=== PATIENT | female | born 1950 | race Caucasian/White ===

== ENCOUNTER 2019-09-23 09:52 | Emergency (ER) | payer MEDICARE, OTHER ==
[~2019-09-23] VITALS: Ht 170.1 cm; Wt 60.0 kg
[2019-09-23] MEDS ORDERED: hydrALAZINE (APESOLINE) 20 MG/ML VIAL IV ONE (10:30)
[2019-09-23] MEDS ORDERED: ACETAMINOPHEN 500 MG TAB (TYLENOL) PO ONE (10:30)
--- NOTE | 2019-09-23 10:35 | ED Headache ---
General Chief Complaint: Cardiac/General Problems Stated Complaint: BP 180/106; HEADACHE Nursing Triage Note: PT REPORTS HIGH BLOOD PRESSURE AFTER HER SCIATIC [place] STARTED IN HER LOWER BACK. SHE WAS STARTED ON PREDNISONE AND TIZANIDINE ON MONDAY FROM URGENT CARE. Nursing Sepsis Screen: No Definite Risk Source: patient History of Present Illness Date Seen by Provider: Sep 23, 2019 Time Seen by Provider: 10:05 Initial Comments The patient is a very pleasant 69-year-old female who presents for evaluation of high blood pressure and headache. She states that she was started on tizanidine and prednisone on Monday at urgent care related to lower back pain which was diagnosed as sciatica. Normally her blood pressure is very well controlled but she reports that she noticed her blood pressure yesterday was approximately 16 0/100 and also noted a mild gradual onset headache. Today the headache has continued and her blood pressure is even more elevated. She is alert and oriented 4, calm, and appears to be in no distress. She states the headache currently is mild. She is mostly concerned about her elevated blood pressure. She denies neck pain or neck stiffness, vision changes, focal weakness or numbness, chest pain or shortness of breath, abdominal or back pain, palpitations, nausea or vomiting, dizziness or syncope. Timing/Duration: 24 hours Severity/Quality: mild Location: frontal Prior Headaches/Recent Trauma: occasional headaches Associated Symptoms: denies symptoms Allergies and Home Medications Allergies Coded Allergies: Sulfa (Sulfonamide Antibiotics) (Verified Allergy, Unknown, 09/23/19) Patient Home Medication List Home Medication List Reviewed: Yes Review of Systems Review of Systems Constitutional: no symptoms reported Eyes: No Symptoms Reported Ears, Nose, Mouth, Throat: no symptoms reported Respiratory: no symptoms reported Cardiovascular: no symptoms reported Gastrointestinal: no symptoms reported Genitourinary: no symptoms reported Musculoskeletal: back pain Skin: no symptoms reported Psychiatric/Neurological: Headache All Other Systems Reviewed Negative Unless Noted: Yes Past Tqmzmqt-Hunytg-Owcogl Hx Past Med/Social Hx: Reviewed Nursing Past Med/Soc Hx Patient Social History Alcohol Use: Denies Use Recreational Drug Use: No Smoking Status: Never a Smoker 2nd Hand Smoke Exposure: No Recent Foreign Travel: No Contact w/Someone Who Travel: No Recent Infectious Disease Expo: No Recent Hopitalizations: No Physical Abuse: No Sexual Abuse: No Mistreated: No Fear: No Seasonal Allergies Seasonal Allergies: Yes Past Medical History Surgeries: Yes Bladder Surgery, Hysterectomy Respiratory: No Cardiac: Yes High Cholesterol, Hypertension Neurological: No Genitourinary: No Gastrointestinal: No Musculoskeletal: Yes Chronic Back Pain Endocrine: No HEENT: No Cancer: No Psychosocial: Yes Anxiety, Depression Blood Disorders: No Physical Exam Vital Signs Vital Signs - First Documented 09/23/19 10:11 Temp 37.7 Pulse 75 Resp 18 B/P (MAP) 185/87 (119) O2 Delivery Room Air Capillary Refill : Less Than 3 Seconds Height, Weight, BMI Height: '" Weight: lbs. oz. kg; 20.00 BMI Method: General Appearance: WD/WN, no apparent distress HEENT: PERRL/EOMI, normal ENT inspection, pharynx normal Neck: non-tender, full range of motion, supple Cardiovascular: regular rate, rhythm, no edema, no JVD Respiratory: chest non-tender, lungs clear, normal breath sounds, no respiratory distress Gastrointestinal: normal bowel sounds, non tender, soft Back: normal inspection, no CVA tenderness Extremities: normal range of motion, non-tender, no pedal edema Psychiatric: alert, oriented x 3 Cra[place] Nerves: normal hearing, normal speech, PERRL Coordination/Gait: normal gait Motor/Sensory: no motor deficit, no sensory deficit Skin: normal color, warm/dry Progress/Results/Core Measures Results/Orders Lab Results Laboratory Tests Test 09/23/19 10:24 Range/Units White Blood Count 6.9 4.3-11.0 10^3/uL Red Blood Count 5.44 4.35-5.85 10^6/uL Hemoglobin 18.2 H 11.5-16.0 G/DL Hematocrit 54 H 35-52 % Mean Corpuscular Volume 99 80-99 FL Mean Corpuscular Hemoglobin 33 25-34 PG Mean Corpuscular Hemoglobin Concent 34 32-36 G/DL Red Cell Distribution Width 12.6 10.0-14.5 % Platelet Count 154 130-400 10^3/uL Mean Platelet Volume 10.5 H 7.4-10.4 FL Neutrophils (%) (Auto) 77 H 42-75 % Lymphocytes (%) (Auto) 16 12-44 % Monocytes (%) (Auto) 7 0-12 % Eosinophils (%) (Auto) 0 0-10 % Basophils (%) (Auto) 0 0-10 % Neutrophils # (Auto) 5.3 1.8-7.8 X 10^3 Lymphocytes # (Auto) 1.1 1.0-4.0 X 10^3 Monocytes # (Auto) 0.5 0.0-1.0 X 10^3 Eosinophils # (Auto) 0.0 0.0-0.3 10^3/uL Basophils # (Auto) 0.0 0.0-0.1 10^3/uL Sodium Level 141 135-145 MMOL/L Potassium Level 4.0 3.6-5.0 MMOL/L Chloride Level 103 98-107 MMOL/L Carbon Dioxide Level 26 21-32 MMOL/L Anion Gap 12 5-14 MMOL/L Blood Urea Nitrogen 13 7-18 MG/DL Creatinine 0.73 0.60-1.30 MG/DL Estimat Glomerular Filtration Rate > 60 BUN/Creatinine Ratio 18 Glucose Level 109 H 70-105 MG/DL Calcium Level 11.0 H 8.5-10.1 MG/DL Corrected Calcium 10.7 H 8.5-10.1 MG/DL Total Bilirubin 0.4 0.1-1.0 MG/DL Aspartate Amino Transf (AST/SGOT) 12 5-34 U/L Alanine Aminotransferase (ALT/SGPT) 8 0-55 U/L Alkaline Phosphatase 47 40-136 U/L Troponin I < 0.30 <0.30 NG/ML Pro-B-Type Natriuretic Peptide 1230.0 H <75.0 PG/ML Total Protein 7.1 6.4-8.2 GM/DL Albumin 4.4 3.2-4.5 GM/DL My Orders Orders - JANICE STEVENS DO Ct Head Wo (09/23/19 09:58) Ed Iv/Invasive Line Start (09/23/19 10:24) Ekg Tracing (09/23/19 10:24) Hydralazine Injection (Apresoline Inject (09/23/19 10:30) Acetaminophen Tablet (Tylenol Tablet) (09/23/19 10:30) Cbc With Automated Diff (09/23/19 10:43) Comprehensive Metabolic Panel (09/23/19 10:43) Troponin I Fs (09/23/19 10:43) Probnp Fs (09/23/19 10:44) Medications Given in ED Current Medications Medications Dose Ordered Sig/Leigha Route Start Time Stop Time Status Last Admin Dose Admin Acetaminophen 1,000 mg ONCE ONCE PO 09/23/19 10:30 09/23/19 10:31 DC 09/23/19 10:29 1,000 MG Hydralazine HCl 15 mg ONCE ONCE IV 09/23/19 10:30 09/23/19 10:31 DC 09/23/19 10:29 15 MG Vital Signs/I&O 09/23/19 10:11 Temp 37.7 Pulse 75 Resp 18 B/P (MAP) 185/87 (119) O2 Delivery Room Air Blood Pressure Mean: 119 Progress Progress Note : Progress Note @1130 - patient updated on lab and imaging results which were unremarkable. Her EKG was abnormal but was similar to previous EKG. She has no complaints and states that her headache is feeling better. Her blood pressure has improved. Advised that she does not take the prednisone as this could be contributing to her hypertension. She states that her back is feeling better terms of the sciatica. Advise close follow-up with her PCP with the next 1-2 days and return to the emergency Department immediately for new or worsening symptoms. The patient stresses verbal understanding and agreement and is stable for discharge. EKG : Comment EKG@1030 - Normal sinus rhythm, rate of 71, normal axis, mild ST depression in leads 2, V5, and V6, no STEMI, reviewed and interpreted by myself This was compared to a previous ecg performed 03/18/19 which also shows the mild ST depression in leads 2, V5, and V6, there is no significant change from this earlier EKG. Diagnostic Imaging Comments [facility] [place], [place] NAME: DAVID MCGUIRE [facility] REC#: [id number] PT STATUS: REG ER : 1950 PHYSICIAN: JANICE STEVENS DO ADMIT DATE: 09/23/19/ER FS Draft Date of Exam:09/23/19 CT HEAD WO PROCEDURE: CT head without contrast. TECHNIQUE: Multiple contiguous axial images were obtained through the brain without the use of intravenous contrast. Auto Exposure Controls were utilized during the CT exam to meet ALARA standards for radiation dose reduction. INDICATION: Headache and high blood pressure since yesterday. No prior studies are available for comparison. Ventricles and sulci are within normal limits. There is moderate patchy periventricular hypodensity noted, likely on the basis of chronic microvascular ischemia. No sulcal effacement or midline shift is seen. No acute intra-axial or extra-axial hemorrhage is detected. Cisterns are patent. Visualized paranasal sinuses are clear. IMPRESSION: Chronic changes. No acute intracranial process is detected. Dictated on workstation # [id number] Dict: 09/23/19 1105 Trans: 09/23/19 1116 [facility] [id number] Interpreted by: VIVIANA SUAZO MD Electronically signed by: Departure Impression Primary Impression: Hypertensive urgency Additional Impression: Headache Disposition: HOME, SELF-CARE Condition: Stable Departure-Patient Inst. Decision time for Depature: 11:35 Referrals: FAINA EID MD (PCP/Family) Primary Care Physician Patient Instructions: High Blood Pressure (DC), Headache, Adult (DC) Add. Discharge Instructions: Follow-up with your doctor the next 1-2 days. Return to the emergency Department immediately for new or worsening symptoms. Do not take your prednisone. JANICE STEVENS DO Sep 23, 2019 10:34
--- NOTE | 2019-09-23 10:52 | NUR ---
CONTACTED DR EID IN [place] IN [place] TO AN OLD EKG FOR COMPARISON. DR. DELAROSA NURSE REPORTS ONE WAS DONE IN FEBRUARY 2019 AND THEY ARE FAXING THE EKG TO DR. STEVENS.
[2019-09-23 10:59] LABS: HEMATOCRIT 54 % (35-52); HEMOGLOBIN 18.2 G/DL (11.5-16.0); MEAN CORPUSCULAR HEMOGLOBIN 33 PG (25-34); MEAN CORPUSCULAR VOLUME 99 FL (80-99); WHITE BLOOD COUNT 6.9 10^3/uL (4.3-11.0)
[2019-09-23 11:00] LABS: BASOPHILS % (AUTO) 0 % (0-10); EOSINOPHILS % (AUTO) 0 % (0-10); LYMPHOCYTES # (AUTO) 1.1 X 10^3 (1.0-4.0); LYMPHOCYTES % (AUTO) 16 % (12-44); MEAN CORPUSCULAR HGB CONC 34 G/DL (32-36); MEAN PLATELET VOLUME 10.5 FL (7.4-10.4); MONOCYTES # (AUTO) 0.5 X 10^3 (0.0-1.0); MONOCYTES % (AUTO) 7 % (0-12); NEUTROPHILS # (AUTO) 5.3 X 10^3 (1.8-7.8); NEUTROPHILS % (AUTO) 77 % (42-75); PLATELET COUNT 154 10^3/uL (130-400); RED CELL DISTRIBUTION WIDTH 12.6 % (10.0-14.5)
--- NOTE | 2019-09-23 11:17 | Diagnostic Imaging Report ---
PROCEDURE: CT head without contrast. TECHNIQUE: Multiple contiguous axial images were obtained through the brain without the use of intravenous contrast. Auto Exposure Controls were utilized during the CT exam to meet ALARA standards for radiation dose reduction. INDICATION: Headache and high blood pressure since yesterday. No prior studies are available for comparison. Ventricles and sulci are within normal limits. There is moderate patchy periventricular hypodensity noted, likely on the basis of chronic microvascular ischemia. No sulcal effacement or midline shift is seen. No acute intra-axial or extra-axial hemorrhage is detected. Cisterns are patent. Visualized paranasal sinuses are clear. IMPRESSION: Chronic changes. No acute intracranial process is detected. Dictated by: Dictated on workstation # [id number]
[2019-09-23 11:19] LABS: ALANINE AMINOTRANSFERASE 8 U/L (0-55); ALKALINE PHOSPHATASE 47 U/L (40-136); BILIRUBIN,TOTAL 0.4 MG/DL (0.1-1.0); BUN/CREATININE RATIO 18; CARBON DIOXIDE 26 MMOL/L (21-32); CHLORIDE 103 MMOL/L (98-107); CREATININE SERUM 0.73 MG/DL (0.60-1.30); GFR ESTIMATED > 60; GLUCOSE 109 MG/DL (70-105); SODIUM 141 MMOL/L (135-145)
[2019-09-23 11:20] LABS: ALBUMIN 4.4 GM/DL (3.2-4.5); TOTAL PROTEIN 7.1 GM/DL (6.4-8.2)
[2019-09-23 11:51] VITALS: BP 154/82
== END 2019-09-23 11:51 | disposition home or self-care (01) ==
LOC: ER FS 09:55
DX: I16.0 Hypertensive urgency (principal); R51 Headache; I10 Essential (primary) hypertension; E78.00 Pure hypercholesterolemia, unspecified; F41.9 Anxiety disorder, unspecified; F32.9 Major depressive disorder, single episode, unspecified; Z88.2 Allergy status to sulfonamides; Z90.710 Acquired absence of both cervix and uterus
CPT/HCPCS: 36415; 70450; 80053; 83880; 84484; 85025; 93005; 96374

== ENCOUNTER 2019-09-24 15:24 | Emergency (ER) | payer MEDICARE, OTHER ==
[~2019-09-24] VITALS: Ht 170.1 cm; Wt 59.0 kg
[2019-09-24 16:35] LABS: BILIRUBIN,URINE NEGATIVE (NEGATIVE); CLARITY,URINE CLEAR; COLOR,URINE YELLOW; GLUCOSE, URINE (UA) NEGATIVE (NEGATIVE); KETONES,URINE NEGATIVE (NEGATIVE); LEUKOCYTE ESTERASE ,URINE NEGATIVE (NEGATIVE); NITRITE,URINE NEGATIVE (NEGATIVE); PH,URINE 7 (5-9); PROTEIN,URINE NEGATIVE (NEGATIVE)
[2019-09-24 16:37] LABS: BASOPHILS % (AUTO) 0 % (0-10); EOSINOPHILS % (AUTO) 0 % (0-10); HEMATOCRIT 44 % (35-52); LYMPHOCYTES # (AUTO) 1.5 X 10^3 (1.0-4.0); LYMPHOCYTES % (AUTO) 16 % (12-44); MEAN CORPUSCULAR HEMOGLOBIN 34 PG (25-34); MEAN CORPUSCULAR HGB CONC 34 G/DL (32-36); MEAN CORPUSCULAR VOLUME 100 FL (80-99); MEAN PLATELET VOLUME 10.7 FL (7.4-10.4); MONOCYTES # (AUTO) 0.8 X 10^3 (0.0-1.0); MONOCYTES % (AUTO) 9 % (0-12); NEUTROPHILS # (AUTO) 7.1 X 10^3 (1.8-7.8); NEUTROPHILS % (AUTO) 75 % (42-75); PLATELET COUNT 285 10^3/uL (130-400); RED CELL DISTRIBUTION WIDTH 12.9 % (10.0-14.5); WHITE BLOOD COUNT 9.4 10^3/uL (4.3-11.0)
[2019-09-24 16:44] LABS: BACTERIA,URINE NEGATIVE /HPF
[2019-09-24 16:48] LABS: ALANINE AMINOTRANSFERASE 14 U/L (0-55); ALBUMIN 4.5 GM/DL (3.2-4.5); ALKALINE PHOSPHATASE 48 U/L (40-136); AMYLASE 80 U/L (25-125); BILIRUBIN,TOTAL 0.7 MG/DL (0.1-1.0); BUN/CREATININE RATIO 12; CALCIUM 10.2 MG/DL (8.5-10.1); CARBON DIOXIDE 26 MMOL/L (21-32); CHLORIDE 103 MMOL/L (98-107); CREATININE SERUM 0.83 MG/DL (0.60-1.30); GFR ESTIMATED > 60; GLUCOSE 106 MG/DL (70-105); LIPASE 64 U/L (8-78); POTASSIUM 3.6 MMOL/L (3.6-5.0); SODIUM 141 MMOL/L (135-145); TOTAL PROTEIN 7.4 GM/DL (6.4-8.2)
--- NOTE | 2019-09-24 17:21 | Diagnostic Imaging Report ---
INDICATION: Nausea, vomiting and fever. TIME OF EXAM: 5:13 PM COMPARISON: No prior studies are available for comparison. FINDINGS: The heart size is normal. The pulmonary vascularity is unremarkable. The lungs are clear. No infiltrate, effusion or pneumothorax is detected. IMPRESSION: No acute cardiopulmonary process is detected. Dictated by: Dictated on workstation # [id number]
--- NOTE | 2019-09-24 17:52 | ED General ---
General Chief Complaint: General Problems/Pain Stated Complaint: N/V, FEVER Nursing Triage Note: has back pain, HTN, N/V, fever, has been seen multiple times for this Nursing Sepsis Screen: No Definite Risk Source of Information: Patient Exam Limitations: No Limitations History of Present Illness Date Seen by Provider: Sep 24, 2019 Time Seen by Provider: 16:28 Initial Comments 69-year-old female who presents to the emergency room accompanied by son and daughter for complaints of low back pain and intermittent hypertension, nausea and vomiting. She reports that she's been seen by multiple providers for this over the past week. She was started on prednisone and muscle relaxers last Monday for sciatica which caused her blood pressure to go up but didn't help her pain. She presented to [place] emergency room for hypertensive urgency yesterday and received IV medications CT scan of her head and lab work which was unremarkable. Her blood pressure did improve and had an appointment with her PCP today and was found to have a fever of 101 during her vital assessment. She reports that she came to our emergency room to get checked out for her fever. She denies no change in symptoms at this time. She is afebrile at this time. Denies taking Tylenol or ibuprofen for pain. Timing/Duration: 4-5 Days Associated Systoms: Fever/Chills, Nausea/Vomiting Allergies and Home Medications Allergies Coded Allergies: Sulfa (Sulfonamide Antibiotics) (Verified Allergy, Unknown, 09/23/19) Patient Home Medication List Home Medication List Reviewed: Yes Review of Systems Review of Systems Constitutional: see HPI; No chills; fever Musculoskeletal: see HPI, back pain All Other Systems Reviewed Negative Unless Noted: Yes Past Iunfojk-Mivzye-Ssthdu Hx Past Med/Social Hx: Reviewed Nursing Past Med/Soc Hx Patient Social History Alcohol Use: Denies Use Recreational Drug Use: No 2nd Hand Smoke Exposure: No Recent Foreign Travel: No Contact w/Someone Who Travel: No Recent Infectious Disease Expo: No Recent Hopitalizations: No Immunizations Up To Date Tetanus Booster (TDap): Unknown Seasonal Allergies Seasonal Allergies: Yes Past Medical History Surgeries: Yes Bladder Surgery, Hysterectomy Respiratory: No Cardiac: Yes High Cholesterol, Hypertension Neurological: No Genitourinary: No Gastrointestinal: No Musculoskeletal: Yes Chronic Back Pain Endocrine: No HEENT: No Cancer: No Psychosocial: Yes Anxiety, Depression Blood Disorders: No Family Medical History Reviewed Nursing Family Hx Physical Exam Vital Signs Vital Signs - First Documented 09/24/19 09/24/19 15:37 18:00 Temp 36.7 Pulse 80 Resp 18 B/P (MAP) 179/96 (123) Pulse Ox 98 O2 Delivery Room Air Capillary Refill : Less Than 3 Seconds Height, Weight, BMI Height: '" Weight: lbs. oz. kg; 20.00 BMI Method: General Appearance: No Apparent Distress, WD/WN Eyes: Bilateral Eye Normal Inspection, Bilateral Eye PERRL, Bilateral Eye EOMI HEENT: PERRL/EOMI, TMs Normal, Normal ENT Inspection, Pharynx Normal Neck: Full Range of Motion, Normal Inspection, Non Tender, Supple Respiratory: Chest Non Tender, Lungs Clear, Normal Breath Sounds, No Accessory Muscle Use, No Respiratory Distress Cardiovascular: Regular Rate, Rhythm, No Edema, No Gallop, No JVD, No Murmur, Normal Peripheral Pulses Gastrointestinal: Normal Bowel Sounds, No Organomegaly, No Pulsatile Mass, Non Tender, Soft Extremity: Normal Capillary Refill Neurologic/Psychiatric: Alert, Oriented x3, Normal Mood/Affect Skin: Normal Color, Warm/Dry Progress/Results/Core Measures Suspected Sepsis Recent Fever Within 48 Hours: No Infection Criteria Present: None New/Unexplained Altered Menta: No Sepsis Screen: No Definite Risk SIRS Temperature: Pulse: 80 Respiratory Rate: 18 Laboratory Tests 09/24/19 16:14: White Blood Count 9.4 Blood Pressure 179 /96 Mean: 123 Laboratory Tests 09/24/19 16:14: Creatinine 0.83, Platelet Count 285, Total Bilirubin 0.7 Results/Orders Lab Results Laboratory Tests Test 09/24/19 16:10 09/24/19 16:14 Range/Units Urine Color YELLOW Urine Clarity CLEAR Urine pH 7 5-9 Urine Specific [place] 1.010 L 1.016-1.022 Urine Protein NEGATIVE NEGATIVE Urine Glucose (UA) NEGATIVE NEGATIVE Urine Ketones NEGATIVE NEGATIVE Urine Nitrite NEGATIVE NEGATIVE Urine Bilirubin NEGATIVE NEGATIVE Urine Urobilinogen NORMAL NORMAL MG/DL Urine Leukocyte Esterase NEGATIVE NEGATIVE Urine RBC (Auto) 2+ H NEGATIVE Urine RBC 5-10 H /HPF Urine WBC NONE /HPF Urine Squamous Epithelial Cells 2-5 /HPF Urine Crystals NONE /LPF Urine Bacteria NEGATIVE /HPF Urine Casts NONE /LPF Urine Mucus NEGATIVE /LPF Urine Culture Indicated NO White Blood Count 9.4 4.3-11.0 10^3/uL Red Blood Count 4.46 4.35-5.85 10^6/uL Hemoglobin 15.0 11.5-16.0 G/DL Hematocrit 44 35-52 % Mean Corpuscular Volume 100 H 80-99 FL Mean Corpuscular Hemoglobin 34 25-34 PG Mean Corpuscular Hemoglobin Concent 34 32-36 G/DL Red Cell Distribution Width 12.9 10.0-14.5 % Platelet Count 285 130-400 10^3/uL Mean Platelet Volume 10.7 H 7.4-10.4 FL Neutrophils (%) (Auto) 75 42-75 % Lymphocytes (%) (Auto) 16 12-44 % Monocytes (%) (Auto) 9 0-12 % Eosinophils (%) (Auto) 0 0-10 % Basophils (%) (Auto) 0 0-10 % Neutrophils # (Auto) 7.1 1.8-7.8 X 10^3 Lymphocytes # (Auto) 1.5 1.0-4.0 X 10^3 Monocytes # (Auto) 0.8 0.0-1.0 X 10^3 Eosinophils # (Auto) 0.0 0.0-0.3 10^3/uL Basophils # (Auto) 0.0 0.0-0.1 10^3/uL Sodium Level 141 135-145 MMOL/L Potassium Level 3.6 3.6-5.0 MMOL/L Chloride Level 103 98-107 MMOL/L Carbon Dioxide Level 26 21-32 MMOL/L Anion Gap 12 5-14 MMOL/L Blood Urea Nitrogen 10 7-18 MG/DL Creatinine 0.83 0.60-1.30 MG/DL Estimat Glomerular Filtration Rate > 60 BUN/Creatinine Ratio 12 Glucose Level 106 H 70-105 MG/DL Calcium Level 10.2 H 8.5-10.1 MG/DL Corrected Calcium 9.8 8.5-10.1 MG/DL Total Bilirubin 0.7 0.1-1.0 MG/DL Aspartate Amino Transf (AST/SGOT) 16 5-34 U/L Alanine Aminotransferase (ALT/SGPT) 14 0-55 U/L Alkaline Phosphatase 48 40-136 U/L Total Protein 7.4 6.4-8.2 GM/DL Albumin 4.5 3.2-4.5 GM/DL Amylase Level 80 25-125 U/L Lipase 64 8-78 U/L Micro Results Microbiology 09/24/19 Influenza Types A,B Antigen (DESIREE) - Final, Complete My Orders Orders - JOSEFINA MAURICE Comprehensive Metabolic Panel (09/24/19 16:28) Lipase (09/24/19 16:28) Amylase (09/24/19 16:28) Ua Culture If Indicated (09/24/19 16:28) Ed Iv/Invasive Line Start (09/24/19 16:28) Cbc With Automated Diff (09/24/19 16:28) Influenza A And B Antigens (09/24/19 16:40) Chest 1 View, Ap/Pa Only (09/24/19 16:57) Vital Signs/I&O 09/24/19 09/24/19 15:37 18:00 Temp 36.7 Pulse 80 82 Resp 18 18 B/P (MAP) 179/96 (123) 166/91 Pulse Ox 98 O2 Delivery Room Air Capillary Refill : Less Than 3 Seconds Blood Pressure Mean: 123 POS Progress Note : Time: 17:49 Progress Note I have seen and evaluated the patient. I've informed her of her laboratory and imaging studies. I have discussed my thoughts on her fever and nausea being caus ed by virus given that her workup was unremarkable. I've instructed her to use Tylenol and ibuprofen for pain control. I have scheduled her close follow-up appointment with her PCP on Monday09/27/19. I've instructed her to keep a log of her blood pressures to take to her PCP in the need of changing her blood pressure medications. She agrees with plan of care, plans for discharge, return precautions were given. Departure Impression Primary Impression: Viral illness Disposition: 01 HOME, SELF-CARE Condition: Stable/Unchanged Departure-Patient Inst. Decision time for Depature: 17:49 Referrals: SELF,NASREEN SCHWAB (PCP/Family) Primary Care Physician Patient Instructions: Viral Syndrome (DC) Add. Discharge Instructions: You may use Tylenol and ibuprofen as directed by the bottle for pain relief. Keep your appointment as scheduled on Monday for close follow-up. Return back to the emergency room for worsening symptoms or concerns as needed. All discharge instructions reviewed with patient and/or family. Voiced understanding. JOSEFINA MAURICE Sep 24, 2019 17:52 POS
[2019-09-24 18:00] VITALS: BP 166/91
== END 2019-09-24 18:09 | disposition home or self-care (01) ==
LOC: ER 15:24 → EDUNIT# 15:24 → ER 18:09
DX: B34.9 Viral infection, unspecified (principal); I10 Essential (primary) hypertension; E78.00 Pure hypercholesterolemia, unspecified; F41.9 Anxiety disorder, unspecified; F32.9 Major depressive disorder, single episode, unspecified; Z88.2 Allergy status to sulfonamides; Z90.710 Acquired absence of both cervix and uterus
CPT/HCPCS: 36415; 71045; 80053; 81000; 82150; 83690; 85025; 87804

== ENCOUNTER → 2019-10-16 | Outpatient (CLI) | payer MEDICARE, OTHER | LOC: CARD 11:29 | PROVIDERS: ATTEND Family Medicine | DX: R42 Dizziness and giddiness (principal) | CPT/HCPCS: 93225; 93226 ==

== ENCOUNTER → 2021-12-28 | Outpatient (CLI) | payer MEDICARE, OTHER ==
--- NOTE | 2021-12-28 12:37 | Diagnostic Imaging Report ---
INDICATION: 71-year-old postmenopausal female. COMPARISON: None. FINDINGS: AP Spine L1-L4: [BMD (g/cm2): 1.234] [T-Score: 0.3] [Z-Score: 2.1] [BMD Previous: NA] [BMD % Change: NA] LT Hip Neck: [BMD (g/cm2): 0.912] [T-Score: -0.9] [Z-Score: 1.0] LT Hip Total: [BMD (g/cm2):0.880] [T-Score:-1.0] [Z-Score: 0.7] [BMD Previous: NA] [BMD % Change: NA] RT Hip Neck: [BMD (g/cm2):0.922] [T-Score:-0.8] [Z-Score:1.1] RT Hip Total: [BMD (g/cm2):0.921] [T-score:-0.7] [Z-Score:1.0] [BMD Previous:NA] [BMD % Change:NA] World Health Organization criteria for BMD interpretation classify patients as Normal (T-score at or above -1.0), Osteopenic (T-score between -1.0 and -2.5) or Osteoporotic (T-score at or below -2.5). LIMITATIONS AND MODIFICATION: None. FRACTURE RISK (FRAX SCORE): The ten year probability of (%): Major Osteoporotic Fracture: [NA] Hip Fracture: [NA] IMPRESSION: 1. Normal bone mineral density. 2. Baseline examination. 3. See below National Osteoporosis Foundation guidelines on when to potentially initiate pharmacologic therapy. Based on the National Osteoporosis Foundation Guidelines, pharmacologic treatment should be initiated in any of the following, unless clinical conditions suggest otherwise: * Any patient with prior fragility fracture of the hip or vertebrae. A spine fracture indicates 5X risk for subsequent spine fracture and 2X risk for subsequent hip fracture. * Osteoporosis (T-score <-2.5). * Postmenopausal women and men age 50 and older with low bone mass/osteopenia (T-score between -1.0 and -2.5) by DXA and 10-year major osteoporotic fracture greater than 20% or a 10-year probability of hip fracture greater than 3%. These fracture risks are supplied above in the FRAX score, if applicable. * Clinician judgement and/or patient preferences may indicate treatment for people with 10-year fracture probabilities above or below these levels. Dictated by: Dictated on workstation # [id number]
== END ==
LOC: RAD 10:30
PROVIDERS: ATTEND Emergency Medicine
DX: Z78.0 Asymptomatic menopausal state (principal)
CPT/HCPCS: 77080